=== PATIENT | female | born 1985 | race Caucasian/White ===

== ENCOUNTER 2018-01-03 05:25 | Inpatient (IN) | payer MEDICAID, SELFPAY ==
[2017-12-28 11:49] VITALS: BMI 43.0
[2018-01-03] VITALS (23 sets, daily range): BP systolic 92–123; BP diastolic 51–83; PULSE 68–98; RESP 16–18; TEMP 36–36.8; O2SAT 76–100
[2018-01-03] MEDS: Lactated Ringers 1,000 ML 999 ML IV (06:00)
[2018-01-03] MEDS: Sodium Citrate/Citric Acid 30 ML UDC PO (06:50)
[2018-01-03] MEDS: Lactated Ringers 1,000 ML 150 ML IV (07:00)
[2018-01-03] MEDS: Lactated Ringers 1,000 ML 50 ML IV (07:00)
--- NOTE | 2018-01-03 07:40 | PLAC_PTH ---
PATIENT: JAZMINE RENNER LOC: [facility] U#:[id number] AGE/SX: 32/F ROOM: [facility] RE01/03/[address]: Dr. Erlinda Gates, MDDOB: 1985 BED: DIS: 01/05/2018 SPEC #: [id number] RECD: 01/03/18 11:46 STATUS: LORIE REBryant #: [id number] LEE: 01/03/18 07:[address]: Erlnida Gates DEPT: SURGICAL PATHOLOGY RECD BY: Harris Fitch ENTERED: 01/03/18 13:15 SP TYPE: PLACENTA OTHR DR: Dr. Bob Child III, MD Tissues: A - Placenta, NOS B - Fallopian tube Procedures: Surgery Specimen Level II Surgery Specimen Level V HEADER OPERATION: Repeat section, bilateral partial salpingectomy PRE-OP DIAGNOSIS: IUGR; desires sterilization TISSUE SUBMITTED: A ? Placenta, B ? Fallopian tubes, stitch in right tube MICROSCOPIC DIAGNOSIS A. Placenta: Placental disc - third trimester placenta (387 gm). Membranes - no pathologic diagnosis. Umbilical cord - three blood vessels and no pathologic diagnosis. B. Bilateral fallopian tubes, partial salpingectomy: Completely transected segments of bilateral fallopian tubes, no pathologic diagnosis. SJ:elpidio 01/07/18 MICROSCOPIC DESCRIPTION Slides are reviewed. GROSS DESCRIPTION A - SPECIMEN: PLACENTA / CLINICAL INFORMATION: A. Weight: 2.657 kg B. Gestational Age: 38 weeks C. Sex: Female PLACENTAL WEIGHT (POST FIXATION): 387 gm PLACENTAL DIMENSIONS: 15 x 15 x 2.5 cm PLACENTAL SHAPE: Usual ovoid PLACENTAL WEIGHT FOR GESTATIONAL AGE: Within 10-99th percentile MEMBRANES - Present A. Insertion: Marginal B. Site of rupture from edge: The membranes are fragmented. The distance of rupture cannot be assessed due to fragmented nature of the membranes. C. Color of membrane: Davis-shelby D. Abnormalities: None UMBILICAL CORD - Present A. Color: Davis-shelby B. Insertion: Paracentral C. Length: 18 cm D. Diameter: 1 cm E. Number of vessels: Three F. Abnormalities: None PLACENTAL DISC - Present A. Color of surface: Davis-shelby B. surface abnormalities: None C. Maternal cotyledons: Intact with minimal tears D. Attached retro placental clot: No clot E. Cut surface: Dark red and spongy F. Lesions: None G. Separate clot: Absent SECTIONS SUBMITTED: 1. Membrane roll 2. Cord, maternal end 3. Cord, end 4. Placental disc, and maternal surfaces 5. Placental disc, and maternal surfaces 6. Placental disc, and maternal surfaces QASIM:elpidio 01/04/18 B ? Received in fixative is one container labeled with the patient's name and designated right with tie. The specimen consists of two tubular pieces of davis-pink soft tissue. The right tube is identified with a tie and is inked black. The right tube measures 1.5 cm in length and 0.5 cm in diameter. The left tube measures 0.6 cm in length and 0.5 cm in diameter. Both pieces will be sectioned at the time of embedding. / QASIM:elpidio 01/03/18 TC:4 CPT: 55917, 17422 x2
[2018-01-03] MEDS: Oxytocin 30 units/NS 500 ml 30 UNITS/500 ML IV.SOLN 167 UNITS IV (07:43)
--- NOTE | 2018-01-03 08:02 | PCM.OB.CSR ---
Delivery Classification: Scheduled Final LAMONT: 01/12/18 Final LAMONT Source: US <20 weeks Gestational age: 38 Weeks and 5 Days Indications: Term gestation 38.5 wks, IUGR, elective repeat c/s and desires sterilization Indications for : Repeat Elective , Desires elective sterilization, - - IUGR Description of Procedure: Surgeon: Dr. Erlinda Gates Welt Pocket Machine Operator: YULIA Ramos Procedure performed: Repeat low transverse section, bilateral partial salpingectomy Anesthesia: Spinal Preoperative diagnosis: Term gestation 38.5 weeks gestation, IUGR for an elective repeat section, desires sterilization Postoperative Diagnosis: same- live female infant Findings: Live female born without complication. clear amniotic fluid. Delayed cord clamping performed. Normal tubes and ovaries bilaterally. Partial salpingectomy performed without complication. EBL: 700 cc Implantable devices: None Operative note: After informed consent was obtained the patient was taken to the operating room she was given spinal anesthesia. SHe was placed in the supine position. She was then prepped and draped in normal sterile fashion. Once spinal anesthesia was found to be adequate skin incision was made with a scalpel in a Pfannenstiel fashion. It was carried down to the underlying layer of the fascia. Fascia was then incised midline with scapel and extended laterally using curved mccarthy. 2 straight [place]'s were placed in the superior aspect of the fascial edge and the rectus muscles were dissected off sharply. Attention was then turned to the inferior aspect where again the fascial edge was grasped with 2 straight Tory clamps tented up and the rectus muscle dissected off sharply. At this time the rectus muscles were midline bluntly. Using blunt force the peritoneum was then entered. Uterine incision was made in a low transverse fashion with the scalpel and then entered bluntly. Gentle opposing traction was placed to extend the uterine incision. The membranes were ruptured amniotic fluid clear. Infant's head was then brought to the uterine incision was delivered atraumatically followed by the rest 's body. At this time delayed cord clamping was performed mouth nose were suctioned. was then handed to the waiting nursery team. The placenta was then removed with gentle traction. The uterus was removed from the intra-abdominal cavity is wrapped in a moist lap. He was cleared of all clots and debris using a moist lap. Ring clamps were placed on the uterine angles. #1 Vicryl suture was used in a running locked fashion to reapproximate uterine incision. Tubes and ovaries were evaluated they were normal. The tubes were grasped in an avascular area with the Shay 0- plain gut suture was used to create a knuckle this was doubly secured. A portion of the tube was then resected using the Metzenbaum scissors. And the ends were coagulated using the Bovie. At this time then the uterus was placed back into abdominal cavity uterine incision was evaluated and noted to be of good hemostasis. Great hemostasis was appreciated at this time the uterine incision was again evaluated good hemostasis was appreciated. The peritoneum was grasped with Kellys. Peritoneum was reapproximated using #2 Vicryl suture in a running fashion. The fascia was then reapproximated using #1 Vicryl in a running fashion. Subcutaneous layer was evaluated and Bovie was used for any small oozing that was noted per #2-0 plain gut suture was then used to reapproximate the subcutaneous layer 4-0 monocryl was used to reapproximate the skin in a subcutaneous fashion. Dry sterile dressing was applied. Instrument lap needle count were correct ?2. Anticipated normal postoperative course for this patient. Amniotic Membrane Rupture Type: Artificial Amniotic Fluid Description: Clear Placenta Disposition: Routine to Lab Specimen(s) sent to pathology: placenta Drain: Salgado to straight drain Cord Entanglement: None Nuchal Cord Compression: Without compression Cord Vessel Description: 3 Vessels Esitmated Blood Loss (ml): 700 Infant Gender: Female (1 minute): 9 (5 minute): 9 Delayed cord clamping: Yes Pre-op Antibiotic Given: Ancef 2 grams IV x1 Pt instructed on risks of surgery: Bleeding, Anesthesia Risks, Infection, Permanency, Failure Rate of 1 to 2%, Injury to surrounding structure(s) including bowel and bladder, Availability of other non-permanent control options Complications: None - Admit VTE Documentation VTE Present on Admission: Yes VTE Mechan Device Prophylaxis: SCD's VTE Pharm Prophylaxis ordered?: Yes
[2018-01-03] MEDS: Lactated Ringers 1,000 ML 100 ML IV ×3 (08:30→23:59)
[2018-01-03] MEDS: Ketorolac 30 MG/ML Syringe IV ×2 (12:15→18:16)
[2018-01-04] VITALS (8 sets, daily range): BP systolic 92–111; BP diastolic 50–66; PULSE 62–82; RESP 16–18; TEMP 36.6–36.8; O2SAT 95–98
[2018-01-04] MEDS: Ketorolac 30 MG/ML Syringe IV ×4 (06:01→19:17)
[2018-01-04 06:34] LABS: Hematocrit 30.2 % (37-47); Hemoglobin 10.2 g/dl (12.0-15.0); Mean Corp Hgb Conc 33.8 g/gl (32-36); Mean Corpuscular Hgb 30.8 pg (27.0-32.0); Mean Corpuscular Volume 91.2 fL (81-99); Mean Platelet Vol. 11.4 fl (6.2-12.0); Platelet Count 158 K/mm3 (150-450); RBC Distribution Width CV 13.2 % (11.6-14.6); Red Blood Count 3.31 M/mm3 (4.2-5.4); White Blood Count 7.2 K/mm3 (4.4-11.0)
[2018-01-04 06:40] LABS: Scan Indicated on CBC? Y/N NO
--- NOTE | 2018-01-04 09:00 | PCM.PN.OB ---
Subjective: pain well controlled. Average lochia. No N/V - Physical Exam General: Alert, Cooperative, No apparent distress Abdomen: Soft, Non-Distended, Tender - appropriately Extremities: Edema - 1+ Skin: Incision - clean, dry and intact Vital Signs Temp Pulse Resp BP Pulse Ox 98.0 F 72 18 92/50 L 97 01/04/18 06:04 01/04/18 06:04 01/04/18 06:04 01/04/18 06:04 01/04/18 06:04 Oxygen Delivery Method Room Air Weight: 117.1 kg Body Mass Index (BMI) 43.0 Intake and Output for Last 24 Hours 01/02/18 01/03/18 01/04/18 23:59 23:59 23:59 Intake Total 4300 / 4300 663 / 663 Output Total 1300 / 1300 600 / 600 Balance 3000 / 3000 63 / 63 Laboratory Tests Past 24 Hrs 01/04/18 06:15 WBC 7.2 RBC 3.31 L Hgb 10.2 L Hct 30.2 L MCV 91.2 MCH 30.8 MCHC 33.8 RDW 13.2 RDW Differential 44.0 H Plt Count 158 MPV 11.4 Assessment/Plan POD#1 routine care and doing well
[2018-01-04] MEDS: 0.9% Saline Lock 10 ML Syringe IV ×2 (12:01→19:18)
[2018-01-05] MEDS: Ketorolac 30 MG/ML Syringe IV ×2 (00:41→05:56)
[2018-01-05] MEDS: 0.9% Saline Lock 10 ML Syringe IV ×2 (00:41→05:56)
[2018-01-05 01:03] VITALS: BP 126/62; PULSE 62; RESP 16; TEMP 36.7; O2SAT 98
--- NOTE | 2018-01-05 08:28 | DCINST_ITS ---
Discharge Diet: No Restrictions Discharge Activity: Return to Normal Activity, May Not Drive - for 2 weeks, May not drive while taking narcotic pain medications., May Shower, May Take a Tub Bath - in 7 days. May resume sexual activity in: 4-6 weeks Lifting Restrictions: 20 pounds Additional Activity Instructions:: Nothing in the vagina for 4-6 weeks. You may return to work/school in 6 weeks. Call your doctor if your incision/area has: Continuous Slow Oozing, Sudden Increased Bleeding, Increased Pain/ Swelling, Increased Redness, Foul Smelling Discharge Call your doctor if you observe: Fever of 101 or Higher, Using more than one pad per hour - for 2 hours Suture Line Care: Avoid Pulling/Pushing, Avoid Pinching/Bending Cleanse incision/area with: Keep Dressing Clean & Dry Additional Instructions: If you experience any of the following, contact your healthcare provider. * Bleeding that soaks a pad every hour for 2 hours * Fever 100.4 or higher * Unrelieved incision or abdominal pain * Swelling, redness, discharge or bleeding from your incision or episiotomy site * Your incision begins to separate * Problems urinating (including inability to urinate or burning while urinating) . * Visual changes * Severe headache * Flu-like symptoms * Pain or redness in one of both of your breasts * Pain, warmth, tenderness or swelling in your legs, especially the calf area * Frequent nausea and vomiting * Symptoms of depression or anxiety If you experience any of the following, call 911 or go to the nearest Emergency Room. * Chest pain * Problems breathing * Seizure activity * Partial or complete paralysis of a body part, slurred speech, weakness or drooping of the face, or a sudden inability to walk or hold your balance Allergies/Adverse Reactions: Allergies No Known Allergies Allergy (Unverified 01/03/18 07:38) Medications to take at Discharge Vits [Prenatabs FA ] 1 tab PO DAILY 10/26/17 Ibuprofen [Motrin] 600 mg PO Q6H PRN #60 tab 01/05/18 Oxycodone HCl/Acetaminophen [Percocet 5/325] 1 - 2 tablet PO Q6H PRN PRN 7 Days #28 tablet 01/05/18 The following prescriptions were given: Oxycodone HCl/Acetaminophen [Percocet 5/325] 1 - 2 tablet PO Q6H PRN PRN 7 Days #28 tablet PRN Reason: Pain Ibuprofen [Motrin] 600 mg PO Q6H PRN #60 tab PRN Reason: Pain Orders to be completed after discharge: Electric breast pump Location: None Selected Follow-Up: Call to make an appointment with your doctor for an incision check in 1-2 weeks. You will also need a 6 week post- follow up appointment. Please Follow Up With: Erlinda Gates MD - Call to make an appointment for an incision check in 1-2 [phone] When: You will need a post check in 6 weeks. Primary Care Physician: Bob Child III, MD [Primary Care Provider] -
--- NOTE | 2018-01-05 08:37 | PCM.PN.BLA ---
Progress Note S: Patient sitting up in bed reporting no issues at this time. Desires discharge to home. O: VSS, Afebrile Nipples without cracks or blisters, no ecchymoses noted or erythema Abdomen NT x 4 quadrants, FF midline 2FB below umbilicus. Dressing dry and intact. +2/4 reflexes in LE, no edema noted, negative calf tenderness to palpation scant rubra lochia A: 32 y/o s/p Repeat LTCS, POD #2 P: 1) Anticipate discharge today - Anticipatory teaching done today 2) RTC in 1-2 weeks for post-op follow-up visit 3) / visit prior to discharge
--- NOTE | 2018-01-05 08:42 | PCM.DC.SUM ---
Discharge Date and Diagnosis Date of Admission: 01/03/18 Date of Discharge: 01/05/18 - Primary Discharge Diagnosis Post-op repeat - Secondary Discharge Diagnosis None Hospital Course and Treatment Imaging Results: None None Operations: - - Procedures: - - LTCS Summary of Care Provided: The patient is a 32 year old F presents for repeat on 01-03-18. Patient Tolerated surgery and had uncomplicated course on her stay. Discharge Diet: No Restrictions Discharge Activity: Return to Normal Activity, May not drive while taking narcotic pain medications., May Shower May shower in (days): 0 May resume sexual activity in: 4-6 weeks, 6-8 weeks Lifting Restrict to (lbs):: 25 Additional Activity Instructions:: Nothing in the vagina for 4-6 weeks. You may return to work/school in 6 weeks. Call your doctor if your incision/area has: Continuous Slow Oozing, Sudden Increased Bleeding, Increased Pain/ Swelling, Increased Redness, Foul Smelling Discharge Call your doctor if you observe: Fever of 101 or Higher, Inability to urinate, Using more than one pad per hour - for 2 hours, Chest pain, Uncontrolled pain Suture Line Care: Avoid Pulling/Pushing, Avoid Pinching/Bending Change Dressing in (Days):: 0 Remove Dressing in (days):: 2 Cleanse incision/area with: Keep Dressing Clean & Dry Home Medications: Medications to take at Discharge Vits [Prenatabs FA ] 1 tab PO DAILY 10/26/17 Ibuprofen [Motrin] 600 mg PO Q6H PRN #60 tab 01/05/18 Oxycodone HCl/Acetaminophen [Percocet 5/325] 1 - 2 tablet PO Q6H PRN PRN 7 Days #28 tablet 01/05/18 Following Prescrptions Were Given to Patient: Oxycodone HCl/Acetaminophen [Percocet 5/325] 1 - 2 tablet PO Q6H PRN PRN 7 Days #28 tablet PRN Reason: Pain Ibuprofen [Motrin] 600 mg PO Q6H PRN #60 tab PRN Reason: Pain Other Amb Orders: Electric breast pump Location: None Selected Primary Care Physician: Bob Child III, MD [Primary Care Provider] - Please Follow Up With: Erlinda Gates MD - Call to make an appointment for an incision check in 1-2 [phone] When: You will need a post check in 6 weeks. Patient Instructions: After a Disposition: Home Minutes spent on discharge:: 20 Patient Condition:: Good Meaningful Use Info Meaningful Use Diagnoses (Choose all that apply): None applicable - AMI Aspirin given w/in 24hrs of arrival?: No Reason no aspirin w/in 24hrs of arrival?: Not indicated
[2018-01-05 09:00] VITALS: BP 121/72; PULSE 81; RESP 18; TEMP 36.2; O2SAT 95
[2018-01-05] MEDS: Senna/Docusate Sodium 1 Tablet PO (09:16)
[2018-01-05] MEDS: Naproxen 250 MG Tablet PO (15:10)
[2018-01-05 16:20] VITALS: BP 127/79; PULSE 80; RESP 16; TEMP 36.8
[2018-01-07 13:55] LABS: Pathology Specimen OB SEE PATHOLOGY REPORT
[2018-01-07 13:55] LABS: Pathology Specimen OB SEE PATHOLOGY REPORT
== END 2018-01-05 16:55 | disposition home or self-care (01) | DRG 371 ==
PROVIDERS: Admitting Provider Obstetrics & Gynecology; Family Provider Family Medicine; PCP Family Medicine; Visit Provider Obstetrics & Gynecology
DX: O34.211 Maternal care for low transverse scar from previous cesarean delivery (principal); O36.5930 Maternal care for other known or suspected poor fetal growth, third trimester, not applicable or unspecified; Z37.0 Single live birth; Z3A.38 38 weeks gestation of pregnancy; Z30.2 Encounter for sterilization
CPT/HCPCS: 85025; 85027; 86850; 86900; 88302; 88307; 99218; J7120; A4216; G0378; J2405